=== PATIENT | female | born 1960 | race Asian ===

== ENCOUNTER 2016-12-03 13:02 | Outpatient (CLI) | payer OTHER | END 2016-12-03 13:03 | disposition home or self-care (01) | DX: G47.8 Other sleep disorders (principal); R06.83 Snoring; G47.00 Insomnia, unspecified ==

== ENCOUNTER 2016-12-31 19:24 | Outpatient (CLI) | payer OTHER | END 2016-12-31 19:25 | disposition home or self-care (01) | DX: Z53.9 Procedure and treatment not carried out, unspecified reason (principal) ==